=== PATIENT | female | born 1935 | race Native Hawaiian/Other Pacific Islander ===

== ENCOUNTER 2016-11-27 07:38 | Outpatient (CLI) | payer OTHER ==
[~2016-11-27 07:38] MED LIST: ALPR0.5T24 PO; AMLO2.5T PO; ASPIRIN ADULT L81 MG OR; BYSTOLIC5 MG PO; CARV25TA PO; CRESTOR20 MG PO; GAVISCON EXTRA OR; LEVO0.0529 PO; LEXAPRO10 MG OR; METOCLOPRAM5 MG OR; NIACIN SR500 MG OR; PLAVIX75 MG PO; PRAS10TA PO; PROBIOTI1 OR; ZANTAC300 MG PO
[2016-11-27 08:12] LABS: PLATELET COUNT 192 K/uL (152-353)
[2016-11-27 08:33] LABS: POTASSIUM 4.5 mmol/L (3.6-5.2)
== END 2016-11-27 19:05 | disposition home or self-care (01) ==
LOC: LABW 07:38
PROVIDERS: Internal Medicine
DX: E11.9 Type 2 diabetes mellitus without complications (principal); E03.8 Other specified hypothyroidism
CPT/HCPCS: 36415; 80053; 80061; 81000; 82043; 82570; 83036; 84439; 84443; 85027

== ENCOUNTER 2017-01-16 08:48 | Outpatient (CLI) | payer OTHER | END 2017-01-16 10:30 | disposition home or self-care (01) | LOC: RESP 08:48 | DX: M85.88 Other specified disorders of bone density and structure, other site (principal); J44.9 Chronic obstructive pulmonary disease, unspecified | CPT/HCPCS: 94640; 94664 ==

== ENCOUNTER 2017-05-20 08:26 | Outpatient (CLI) | payer OTHER ==
[2017-05-20 09:15] LABS: POTASSIUM 4.5 mmol/L (3.6-5.2)
[2017-05-20 09:50] LABS: PLATELET COUNT 214 K/uL (152-353)
== END 2017-05-20 19:29 | disposition home or self-care (01) ==
LOC: LABW 08:26
PROVIDERS: Internal Medicine
DX: E11.9 Type 2 diabetes mellitus without complications (principal); E03.8 Other specified hypothyroidism; M54.89 Other dorsalgia; M79.1 Myalgia
CPT/HCPCS: 36415; 80053; 80061; 81000; 82043; 82085; 82570; 82607; 83036; 84439; 84443; 85027; 85651; 86039; 87077; 87086; 87088; 87186

== ENCOUNTER 2017-05-30 14:12 | Outpatient (CLI) | payer OTHER ==
[2017-05-30] MEDS ORDERED: HORIZANT300 MG PO (21:09)
[2017-05-30] MEDS ORDERED: PREVACID30 M1 PO (21:10)
[2017-05-30] MEDS ORDERED: FIBERCON625 MG PO (21:11)
[2017-05-30] MEDS ORDERED: TRAM50TA PO (21:12)
[2017-05-30] MEDS ORDERED: ASPI-93 PO (21:12)
[2017-05-30] MEDS ORDERED: CLOP75TA2 PO (21:13)
[2017-05-30] MEDS ORDERED: SITA50TA2 PO (21:13)
[2017-05-30] MEDS ORDERED: CLARITIN10 M1 PO (21:13)
[2017-05-30] MEDS ORDERED: PRESERVISION PO (21:14)
[2017-05-30] MEDS ORDERED: REPATHA140 MG/ML SC (21:15)
[2017-05-30] MEDS ORDERED: NITR0.2D21 TD (21:15)
[2017-05-31] MEDS ORDERED: GAVISCON EXTRA PO (01:44)
== END 2017-05-30 15:15 | disposition home or self-care (01) ==
LOC: LAB 14:12
DX: N39.0 Urinary tract infection, site not specified (principal)
CPT/HCPCS: 87086; 87088

== ENCOUNTER 2017-05-30 20:44 | Outpatient (CLI) | payer OTHER ==
[2017-05-30] MEDS ORDERED: HORIZANT300 MG PO (21:09)
[2017-05-30] MEDS ORDERED: PREVACID30 M1 PO (21:10)
[2017-05-30] MEDS ORDERED: FIBERCON625 MG PO (21:11)
[2017-05-30] MEDS ORDERED: TRAM50TA PO (21:12)
[2017-05-30] MEDS ORDERED: ASPI-93 PO (21:12)
[2017-05-30] MEDS ORDERED: SITA50TA2 PO (21:13)
[2017-05-30] MEDS ORDERED: CLOP75TA2 PO (21:13)
[2017-05-30] MEDS ORDERED: CLARITIN10 M1 PO (21:13)
[2017-05-30] MEDS ORDERED: PRESERVISION PO (21:14)
[2017-05-30] MEDS ORDERED: REPATHA140 MG/ML SC (21:15)
[2017-05-30] MEDS ORDERED: NITR0.2D21 TD (21:15)
[2017-05-31] MEDS ORDERED: GAVISCON EXTRA PO (01:44)
== END 2017-05-30 20:53 | disposition short-term general hospital (02) ==
LOC: AMB 20:44
DX: R06.02 Shortness of breath (principal)
CPT/HCPCS: A0425; A0427

== ENCOUNTER 2017-05-30 20:58 | Inpatient (IN) | payer OTHER ==
[~2017-05-30] VITALS: Ht 160 cm; Wt 64.5 kg
[2017-05-30] MEDS ORDERED: HORIZANT300 MG PO (21:09)
[2017-05-30] MEDS ORDERED: PREVACID30 M1 PO (21:10)
[2017-05-30] MEDS ORDERED: FIBERCON625 MG PO (21:11)
[2017-05-30] MEDS ORDERED: TRAM50TA PO (21:12)
[2017-05-30] MEDS ORDERED: ASPI-93 PO (21:12)
[2017-05-30 21:13] VITALS: BP 133/106; TEMP 99.5
[2017-05-30] MEDS ORDERED: SITA50TA2 PO (21:13)
[2017-05-30] MEDS ORDERED: CLOP75TA2 PO (21:13)
[2017-05-30] MEDS ORDERED: CLARITIN10 M1 PO (21:13)
[2017-05-30] MEDS ORDERED: PRESERVISION PO (21:14)
[2017-05-30] MEDS ORDERED: NITR0.2D21 TD (21:15)
[2017-05-30] MEDS ORDERED: REPATHA140 MG/ML SC (21:15)
[2017-05-30 21:33] LABS: PLATELET COUNT 123 K/uL (152-353)
[2017-05-30 21:40] LABS: POTASSIUM 4.2 mmol/L (3.6-5.2)
[2017-05-31 00:38] VITALS: BP 147/60; TEMP 99; Ht 160 cm; Wt 64.5 kg
[2017-05-31] MEDS ORDERED: GAVISCON EXTRA PO (01:44)
[2017-05-31 04:00] VITALS: BP 108/44; TEMP 99.8
[2017-05-31 08:00] VITALS: BP 128/50; TEMP 99.2
[2017-05-31 12:00] VITALS: BP 116/49; TEMP 98.1
[2017-05-31 16:00] VITALS: BP 114/44; TEMP 98.3
[2017-05-31 20:00] VITALS: BP 146/52; TEMP 98.3
[2017-06-01] VITALS: BP 101/45; TEMP 98.6
[2017-06-01 04:00] VITALS: BP 101/43; TEMP 97.7
[2017-06-01 06:10] LABS: PLATELET COUNT 40 K/uL (152-353)
[2017-06-01 06:31] LABS: POTASSIUM 3.4 mmol/L (3.6-5.2)
[2017-06-01 08:00] VITALS: BP 111/41; TEMP 98.1
[2017-06-01 12:00] VITALS: BP 110/40; TEMP 97.9
[2017-06-01 16:00] VITALS: BP 98/35; TEMP 97.8
[2017-06-01 20:00] VITALS: BP 128/46; TEMP 98.4
[2017-06-02] VITALS: BP 160/80; TEMP 98.2
[2017-06-02 04:00] VITALS: BP 135/48; TEMP 98.4
[2017-06-02 07:09] LABS: POTASSIUM 3.8 mmol/L (3.6-5.2)
[2017-06-02 07:10] LABS: PLATELET COUNT 61 K/uL (152-353)
[2017-06-02 08:00] VITALS: BP 132/55; TEMP 98.1
[2017-06-02 12:30] VITALS: BP 105/57; TEMP 98.8
[2017-06-02 16:00] VITALS: BP 115/38; TEMP 98.8
[2017-06-02 20:00] VITALS: BP 107/55; BP 139/53; TEMP 98.7; TEMP 99.3
[2017-06-03] VITALS: BP 152/52; TEMP 99
[2017-06-03 04:17] VITALS: BP 144/51; TEMP 99
[2017-06-03 06:44] LABS: PLATELET COUNT 130 K/uL (152-353)
[2017-06-03 07:00] LABS: POTASSIUM 3.8 mmol/L (3.6-5.2)
[2017-06-03 08:00] VITALS: BP 140/57; TEMP 97.8
[2017-06-03 12:00] VITALS: BP 129/37; TEMP 98.3
[2017-06-03 16:00] VITALS: BP 168/52; TEMP 98.8
[2017-06-03 20:00] VITALS: BP 167/59; TEMP 99.7
[2017-06-04] VITALS: BP 137/56; BP 158/61; TEMP 98.5; TEMP 98.7
[2017-06-04 04:00] VITALS: BP 125/52; TEMP 98.5
[2017-06-04 04:59] LABS: PLATELET COUNT 162 K/uL (152-353)
[2017-06-04 05:16] LABS: POTASSIUM 3.7 mmol/L (3.6-5.2); SODIUM 136 mmol/L (136-145)
[2017-06-04 07:56] VITALS: BP 169/56; TEMP 98.8
[2017-06-04 11:59] VITALS: BP 118/45; TEMP 98.3
[2017-06-04 16:00] VITALS: BP 146/51; TEMP 98.6
[2017-06-04 20:21] VITALS: BP 168/56; TEMP 98.1
[2017-06-05] VITALS: BP 132/50; TEMP 99.3
[2017-06-05 04:00] VITALS: BP 137/55; TEMP 99.2
[2017-06-05 05:22] LABS: PLATELET COUNT 179 K/uL (152-353)
[2017-06-05 05:46] LABS: POTASSIUM 3.7 mmol/L (3.6-5.2); SODIUM 136 mmol/L (136-145)
[2017-06-05 08:00] VITALS: BP 149/58; TEMP 98.7
[2017-06-05 12:00] VITALS: TEMP 98.7
[2017-06-05 16:00] VITALS: BP 155/57; TEMP 98.8
[2017-06-05 20:00] VITALS: BP 156/50; TEMP 98.8
[2017-06-06] VITALS: BP 152/58; TEMP 98.4
[2017-06-06 04:00] VITALS: BP 141/52; TEMP 99.5
[2017-06-06 05:26] LABS: PLATELET COUNT 189 K/uL (152-353)
[2017-06-06 05:50] LABS: POTASSIUM 3.9 mmol/L (3.6-5.2)
[2017-06-06 08:00] VITALS: BP 151/47; TEMP 98.9
== END 2017-06-06 09:57 | disposition home or self-care (01) | DRG 291 ==
LOC: ED 20:58 → MED/SURG 23:42
PROVIDERS: Internal Medicine; Specialist
DX: I13.0 Hypertensive heart and chronic kidney disease with heart failure and stage 1 through stage 4 chronic kidney disease, or unspecified chronic kidney disease (principal); I50.31 Acute diastolic (congestive) heart failure; J18.8 Other pneumonia, unspecified organism; J81.1 Chronic pulmonary edema; N39.0 Urinary tract infection, site not specified; R06.09 Other forms of dyspnea; D64.89 Other specified anemias; D69.6 Thrombocytopenia, unspecified; K44.9 Diaphragmatic hernia without obstruction or gangrene; E11.22 Type 2 diabetes mellitus with diabetic chronic kidney disease; N18.3 Chronic kidney disease, stage 3 (moderate)
CPT/HCPCS: 36415; 36600; 51702; 80053; 81000; 82550; 82805; 82948; 83880; 84484; 85027; 85379; 87040; 87086; 87088; 93005; 94760; 96367; 96372; 96374; 96375; 99284; A9540; A9567; J1650; J1940; J2270; J2405; J3490

== ENCOUNTER 2017-06-12 07:57 | Outpatient (CLI) | payer OTHER ==
[~2017-06-12 07:57] MED LIST changes: +ASPI-93 PO; +CLARITIN10 M1 PO; +CLOP75TA2 PO; +FIBERCON625 MG PO; +GAVISCON EXTRA PO; +HORIZANT300 MG PO; +NITR0.2D21 TD; +PRESERVISION PO; +PREVACID30 M1 PO; +REPATHA140 MG/ML SC; +SITA50TA2 PO; +TRAM50TA PO
[2017-06-12 08:33] LABS: POTASSIUM 4.8 mmol/L (3.6-5.2)
[2017-06-12 09:10] LABS: PLATELET COUNT 303 K/uL (152-353)
== END 2017-06-12 09:00 | disposition home or self-care (01) ==
LOC: LABW 07:57
PROVIDERS: Internal Medicine
DX: R10.84 Generalized abdominal pain (principal)
CPT/HCPCS: 36415; 80053; 85027

== ENCOUNTER 2017-06-13 09:34 | Outpatient (CLI) | payer OTHER | END 2017-06-13 19:06 | disposition home or self-care (01) | LOC: CT 09:34 | DX: M54.5 Low back pain (principal); R29.898 Other symptoms and signs involving the musculoskeletal system ==

== ENCOUNTER 2017-06-17 08:41 | Outpatient (CLI) | payer OTHER | END 2017-06-17 19:04 | disposition home or self-care (01) | LOC: US 08:41 | DX: R10.84 Generalized abdominal pain (principal) ==

== ENCOUNTER 2017-06-26 13:42 | Outpatient (CLI) | payer OTHER ==
[2017-06-26 14:36] LABS: POTASSIUM 4.7 mmol/L (3.6-5.2)
== END 2017-06-26 19:37 | disposition home or self-care (01) ==
LOC: LABW 13:42
PROVIDERS: Internal Medicine Cardiovascular Disease
DX: Z79.899 Other long term (current) drug therapy (principal); I50.9 Heart failure, unspecified; Z51.81 Encounter for therapeutic drug level monitoring
CPT/HCPCS: 36415; 80048; 83880

== ENCOUNTER 2017-08-14 14:42 | Outpatient (CLI) | payer OTHER ==
[2017-08-14 15:09] LABS: PLATELET COUNT 236 K/uL (152-353)
== END 2017-08-14 19:58 | disposition home or self-care (01) ==
LOC: LABW 14:42
PROVIDERS: Internal Medicine Cardiovascular Disease
DX: Z79.899 Other long term (current) drug therapy (principal); Z51.81 Encounter for therapeutic drug level monitoring
CPT/HCPCS: 36415; 85027; 85651

== ENCOUNTER 2017-08-23 08:36 | Outpatient (CLI) | payer OTHER | END 2017-08-23 21:48 | disposition home or self-care (01) | LOC: LABW 08:36 | PROVIDERS: Internal Medicine Cardiovascular Disease | DX: E78.4 Other hyperlipidemia (principal) | CPT/HCPCS: 36415; 80061 ==

== ENCOUNTER 2017-10-23 13:36 | Outpatient (CLI) | payer OTHER ==
[2017-10-23 13:56] LABS: PLATELET COUNT 243 K/uL (152-353)
== END 2017-10-23 18:15 | disposition home or self-care (01) ==
LOC: LABW 13:36
PROVIDERS: Internal Medicine Cardiovascular Disease
DX: D64.89 Other specified anemias (principal); E61.1 Iron deficiency
CPT/HCPCS: 36415; 83540; 83550; 85027

== ENCOUNTER 2018-05-05 07:23 | Outpatient (CLI) | payer OTHER | END 2018-05-05 19:25 | disposition home or self-care (01) | LOC: LABW 07:23 | PROVIDERS: Internal Medicine | DX: I25.10 Atherosclerotic heart disease of native coronary artery without angina pectoris (principal); Z79.899 Other long term (current) drug therapy | CPT/HCPCS: 36415; 80061; 84439; 84443 ==

== ENCOUNTER 2019-02-11 07:08 | Outpatient (CLI) | payer OTHER ==
[2019-02-11 07:24] LABS: PLATELET COUNT 207 K/uL (152-353)
[2019-02-11 08:29] LABS: POTASSIUM 4.9 mmol/L (3.6-5.2)
== END 2019-02-11 23:38 | disposition home or self-care (01) ==
LOC: LABW 07:08
PROVIDERS: Internal Medicine
DX: E11.9 Type 2 diabetes mellitus without complications (principal); E03.8 Other specified hypothyroidism; R82.998 Other abnormal findings in urine
CPT/HCPCS: 36415; 80053; 80061; 81000; 82043; 82570; 83036; 84439; 84443; 85027; 87077; 87086; 87088; 87186

== ENCOUNTER 2019-07-09 06:30 | Outpatient (CLI) | payer OTHER ==
[2019-07-09 07:27] LABS: PLATELET COUNT 191 K/uL (152-353)
[2019-07-09 08:41] LABS: POTASSIUM 4.4 mmol/L (3.6-5.2)
== END 2019-07-09 20:10 | disposition home or self-care (01) ==
LOC: LABW 06:30
PROVIDERS: Internal Medicine
DX: E11.9 Type 2 diabetes mellitus without complications (principal); E03.8 Other specified hypothyroidism; I25.10 Atherosclerotic heart disease of native coronary artery without angina pectoris; Z79.899 Other long term (current) drug therapy
CPT/HCPCS: 36415; 80053; 80061; 81000; 82043; 82570; 83036; 83880; 84439; 84443; 85027

== ENCOUNTER 2019-09-22 13:48 | Outpatient (CLI) | payer OTHER | END 2019-09-22 19:28 | disposition home or self-care (01) | LOC: RAD 13:48 | DX: J40 Bronchitis, not specified as acute or chronic (principal) ==

== ENCOUNTER 2020-02-04 13:53 | Outpatient (CLI) | payer OTHER ==
[2020-02-04 14:10] LABS: PLATELET COUNT 162 K/uL (152-353)
[2020-02-04 14:51] LABS: POTASSIUM 5.5 mmol/L (3.6-5.2)
== END 2020-02-04 21:54 | disposition home or self-care (01) ==
LOC: LAB 13:53
PROVIDERS: Internal Medicine
DX: E11.9 Type 2 diabetes mellitus without complications (principal); E03.8 Other specified hypothyroidism; I25.10 Atherosclerotic heart disease of native coronary artery without angina pectoris
CPT/HCPCS: 80053; 80061; 81000; 82043; 82570; 83036; 84439; 84443; 85027

== ENCOUNTER 2020-02-18 10:20 | Outpatient (CLI) | payer OTHER | END 2020-02-18 14:16 | disposition home or self-care (01) | LOC: LAB 10:20 | PROVIDERS: ATTEND Internal Medicine Cardiovascular Disease | DX: Z79.899 Other long term (current) drug therapy (principal) | CPT/HCPCS: 84132 ==

== ENCOUNTER 2020-08-24 10:10 | Outpatient (CLI) | payer OTHER ==
[2020-08-24 10:36] LABS: PLATELET COUNT 172 K/uL (152-353)
[2020-08-24 10:58] LABS: POTASSIUM 5.1 mmol/L (3.6-5.2)
== END 2020-08-24 21:50 | disposition home or self-care (01) ==
LOC: LABW 10:10
PROVIDERS: ATTEND Internal Medicine
DX: E11.9 Type 2 diabetes mellitus without complications (principal); R82.998 Other abnormal findings in urine
CPT/HCPCS: 36415; 80053; 80061; 81000; 82043; 83036; 84439; 84443; 85027; 87077; 87086; 87088; 87186

== ENCOUNTER 2020-10-11 12:55 | Outpatient (CLI) | payer OTHER | END 2020-10-11 20:49 | disposition home or self-care (01) | LOC: RAD 12:55 | PROVIDERS: ATTEND Internal Medicine | DX: Z13.820 Encounter for screening for osteoporosis (principal); N95.8 Other specified menopausal and perimenopausal disorders ==

== ENCOUNTER 2020-11-21 10:23 | Outpatient (CLI) | payer OTHER | END 2020-11-21 19:31 | disposition home or self-care (01) | LOC: CT 10:23 | PROVIDERS: ATTEND Internal Medicine | DX: M79.641 Pain in right hand (principal); M79.642 Pain in left hand; S09.8XXA Other specified injuries of head, initial encounter; W19.XXXA Unspecified fall, initial encounter ==

== ENCOUNTER 2021-10-27 20:05 | Emergency (ER) | payer OTHER ==
[~2021-10-27] VITALS: Ht 160 cm; Wt 59.9 kg
[~2021-10-27 20:05] MED LIST changes: +ALLER-TEC10 MG PO; +ATOR20TA2 PO; +BREO ELLIPTA 101 INH INH; +CEFDINIR300 MG PO; +JANUVIA100 MG PO; +LIPITOR10 MG PO; +NEBIVOLOL5 MG PO; +NEURONTIN 100M100 MG PO
[2021-10-27 21:01] LABS: PLATELET COUNT 180 K/uL (152-353)
[2021-10-27 21:08] LABS: POTASSIUM 3.8 mmol/L (3.6-5.2)
[2021-10-27 23:55] VITALS: BP 144/66; TEMP 98.4
== END 2021-10-27 23:55 | disposition short-term general hospital (02) ==
LOC: ED 20:05
PROVIDERS: Hospitalist
DX: R10.84 Generalized abdominal pain (principal); K56.699 Other intestinal obstruction unspecified as to partial versus complete obstruction; R11.2 Nausea with vomiting, unspecified; Z11.52 Encounter for screening for COVID-19
CPT/HCPCS: 80053; 83690; 84484; 85027; 87635; 93005; 96361; 96365; 96375; 96376; 99284; J2270; J2405; J2543; Q9963; U0003

== ENCOUNTER 2021-12-21 13:39 | Outpatient (CLI) | payer OTHER | END 2021-12-21 19:25 | disposition home or self-care (01) | LOC: RAD 13:39 | PROVIDERS: ATTEND Internal Medicine Gastroenterology | DX: R14.0 Abdominal distension (gaseous) (principal) ==

== ENCOUNTER 2022-01-29 08:28 | Emergency (ER) | payer OTHER ==
[~2022-01-29] VITALS: Ht 160 cm; Wt 59.9 kg
[2022-01-29 08:34] VITALS: TEMP 97.8
[2022-01-29 09:05] LABS: PLATELET COUNT 182 K/uL (152-353)
[2022-01-29 09:13] LABS: POTASSIUM 3.9 mmol/L (3.6-5.2)
[2022-01-29 09:23] LABS: PARTIAL THROMBOPLASTIN TIME 30.1 SECONDS (24.5-33.6)
[2022-01-29 13:30] VITALS: BP 168/68
== END 2022-01-29 13:45 | disposition home or self-care (01) ==
LOC: ED 08:28
PROVIDERS: Emergency Medicine
DX: R06.02 Shortness of breath (principal)
CPT/HCPCS: 80053; 81002; 83880; 84484; 85027; 85379; 85610; 85730; 93005; 96374; 99284; J1940

== ENCOUNTER 2022-02-08 14:29 | Outpatient (CLI) | payer OTHER | END 2022-02-08 19:09 | disposition home or self-care (01) | LOC: RESP 14:29 | PROVIDERS: ATTEND Internal Medicine Cardiovascular Disease | DX: Z79.899 Other long term (current) drug therapy (principal); I10 Essential (primary) hypertension | CPT/HCPCS: 36415; 80048; 83880 ==

== ENCOUNTER 2022-04-12 07:39 | Outpatient (CLI) | payer OTHER ==
[2022-04-12 08:16] LABS: PLATELET COUNT 159 K/uL (152-353)
[2022-04-12 08:26] LABS: POTASSIUM 4.6 mmol/L (3.6-5.2)
== END 2022-04-12 20:43 | disposition home or self-care (01) ==
LOC: LABW 07:39
PROVIDERS: ATTEND Physician Assistant
DX: I42.8 Other cardiomyopathies (principal); Z79.899 Other long term (current) drug therapy
CPT/HCPCS: 36415; 80048; 83880; 84443; 85027

== ENCOUNTER 2022-07-24 09:05 | Emergency (ER) | payer OTHER ==
[~2022-07-24] VITALS: Ht 160 cm; Wt 56.7 kg
[2022-07-24 09:10] VITALS: TEMP 98.3
[2022-07-24 11:08] LABS: PLATELET COUNT 131 K/uL (152-353)
[2022-07-24 11:10] VITALS: BP 144/53
[2022-07-24 11:12] LABS: POTASSIUM 3.9 mmol/L (3.6-5.2)
[2022-07-24 11:22] LABS: PARTIAL THROMBOPLASTIN TIME 36.3 SECONDS (24.5-33.6)
== END 2022-07-24 12:38 | disposition home or self-care (01) ==
LOC: ED 09:05
PROVIDERS: Emergency Medicine
DX: J10.1 Influenza due to other identified influenza virus with other respiratory manifestations (principal); I50.9 Heart failure, unspecified; Z20.822 Contact with and (suspected) exposure to COVID-19
CPT/HCPCS: 80053; 83880; 84484; 85027; 85610; 85730; 87502; 87635; 87651; 93005; 96372; 99283; J1940; U0003

== ENCOUNTER 2022-07-31 08:55 | Outpatient (CLI) | payer OTHER | END 2022-07-31 18:57 | disposition home or self-care (01) | LOC: RAD 08:55 | PROVIDERS: ATTEND Internal Medicine | DX: J40 Bronchitis, not specified as acute or chronic (principal) ==

== ENCOUNTER 2022-08-04 15:33 | Observation (INO) | payer OTHER ==
[~2022-08-04] VITALS: Ht 160 cm; Wt 56.0 kg
[~2022-08-04 15:33] MED LIST changes: -ALLER-TEC10 MG PO; +CETI10TA PO; +EUTHYROX50 MCG PO; -LEVO0.0529 PO
[2022-08-04 15:36] VITALS: BP 111/63; TEMP 98.5
[2022-08-04 16:34] LABS: PLATELET COUNT 381 K/uL (152-353)
[2022-08-04 16:39] LABS: POTASSIUM 4.2 mmol/L (3.6-5.2)
[2022-08-04 18:52] VITALS: BP 133/53; TEMP 98.4; Ht 160 cm; Wt 56.0 kg
[2022-08-04 19:50] VITALS: BP 133/53; TEMP 98.4
[2022-08-04 23:38] VITALS: BP 114/48; TEMP 98.1
[2022-08-05 03:20] LABS: PLATELET COUNT 303 K/uL (152-353)
[2022-08-05 03:42] VITALS: BP 117/38; TEMP 98
[2022-08-05 08:00] VITALS: BP 132/52; TEMP 98
[2022-08-05] MEDS ORDERED: FARXIGA10 MG PO (10:45)
[2022-08-05] MEDS ORDERED: LIPITOR40 MG PO (10:46)
[2022-08-05] MEDS ORDERED: ZINC100 M1 PO (10:47)
[2022-08-05] MEDS ORDERED: IRON PO (10:50)
[2022-08-05] MEDS ORDERED: GARLIC PO (10:50)
[2022-08-05] MEDS ORDERED: SPIRONOLACT25 MG PO (10:54)
[2022-08-05] MEDS ORDERED: ENTRESTO 24-261 TAB PO (10:54)
[2022-08-05] MEDS ORDERED: FURO20TA67 PO (10:56)
[2022-08-05 12:00] VITALS: BP 136/54; TEMP 98
[2022-08-05 16:00] VITALS: BP 152/60; TEMP 98.2
[2022-08-05 20:00] VITALS: BP 151/66; TEMP 98.6
[2022-08-05 23:50] VITALS: BP 134/52; TEMP 98.1
[2022-08-06 03:51] VITALS: BP 117/59; TEMP 97.7
[2022-08-06 05:36] LABS: PLATELET COUNT 283 K/uL (152-353)
[2022-08-06 05:55] LABS: POTASSIUM 3.7 mmol/L (3.6-5.2)
[2022-08-06] MEDS ORDERED: PRED10TA27 PO (06:36)
[2022-08-06] MEDS ORDERED: CEFD300C2 PO (06:37)
[2022-08-06 08:00] VITALS: BP 138/51; TEMP 97.9
[2022-08-06] MEDS ORDERED: ALBU90AE13 INH (08:27)
== END 2022-08-06 09:09 | disposition home or self-care (01) ==
LOC: ED 15:33 → MED/SURG 17:30
PROVIDERS: Emergency Medicine; ADMIT Internal Medicine; ATTEND Internal Medicine
DX: J20.9 Acute bronchitis, unspecified (principal); J45.901 Unspecified asthma with (acute) exacerbation; N17.8 Other acute kidney failure; J44.0 Chronic obstructive pulmonary disease with (acute) lower respiratory infection; J44.1 Chronic obstructive pulmonary disease with (acute) exacerbation; I50.22 Chronic systolic (congestive) heart failure; I25.10 Atherosclerotic heart disease of native coronary artery without angina pectoris; F03.90 Unspecified dementia, unspecified severity, without behavioral disturbance, psychotic disturbance, mood disturbance, and anxiety
CPT/HCPCS: 36415; 80048; 80053; 81002; 82948; 83880; 84484; 85027; 87502; 87635; 93005; 96360; 96361; 96365; 96366; 99220; 99284; G0378; J0696; U0003

== ENCOUNTER 2022-12-26 12:53 | Outpatient (CLI) | payer OTHER ==
[~2022-12-26 12:53] MED LIST changes: +ALBU90AE13 INH; +CEFD300C2 PO; +ENTRESTO 24-261 TAB PO; +FARXIGA10 MG PO; +FURO20TA67 PO; +GARLIC PO; +IRON PO; +LIPITOR40 MG PO; +PRED10TA27 PO; +SPIRONOLACT25 MG PO; +ZINC100 M1 PO
[2022-12-26 13:36] LABS: PLATELET COUNT 166 K/uL (152-353)
[2022-12-26 14:08] LABS: POTASSIUM 4.7 mmol/L (3.6-5.2)
== END 2022-12-26 18:59 | disposition home or self-care (01) ==
LOC: LAB 12:53
PROVIDERS: ATTEND Internal Medicine
DX: I10 Essential (primary) hypertension (principal); E03.8 Other specified hypothyroidism; I25.10 Atherosclerotic heart disease of native coronary artery without angina pectoris; R35.0 Frequency of micturition; Z79.899 Other long term (current) drug therapy
CPT/HCPCS: 80053; 80061; 83036; 84439; 84443; 85027